=== PATIENT | male | born 1995 | race African-American/Black ===

== ENCOUNTER 2018-08-10 02:28 | Emergency (ER) | payer SELFPAY ==
[2018-08-10] MEDS ORDERED: ACETAMINOPHEN 325 MG TABLET PO ONE (03:35)
[2018-08-10] MEDS ORDERED: DIPH/PERTUSS(ACELL)/TETANUS VAC/PF 0.5 ML SYR (>=10YO) IM ONE (03:37)
--- NOTE | 2018-08-10 03:38 | ER Document Report ---
HPI - HPI Pain Level: 5 Context: Patient is a 22-year-old male presents to the emergency department after stubbing his left fifth toe on a break while taking out the garbage. This happened at 0100 this morning. he was not wearing any shoes always taking out the garbage. He complains of pain to his fifth toe, walking is difficult for him, but he is able to walk enough to where he can get around. He favors his inner foot. - CONSTITUTIONAL Constitutional: DENIES: Fever, Chills - CARDIOVASCULAR Cardiovascular: DENIES: Chest pain - RESPIRATORY Respiratory: DENIES: Trouble Breathing, Coughing - MUSCULOSKELETAL Musculoskeletal: REPORTS: Extremity pain - Left fifth toe - DERM Skin Problems: Laceration - Left fifth toe Past Medical History - General Information source: Patient - Social History Smoking Status: Never Smoker Frequency of alcohol use: None Drug Abuse: None Family History: Reviewed & Not Pertinent - Immunizations Hx Diphtheria, Pertussis, Tetanus Vaccination: Yes Vertical Provider Document - INFECTION CONTROL TRAVEL OUTSIDE OF THE [place] IN LAST 30 DAYS: No - HEENT HEENT: Atraumatic - RESPIRATORY Respiratory: No Respiratory Distress - MUSCULOSKELETAL/EXTREMETIES Musculoskeletal/Extremeties: Tender - Left fifth toe, Edema - Left fifth toe - NEURO Level of Consciousness: Awake, Alert, Appropriate - DERM Integumentary: Warm, Dry, Laceration - Left fifth toe Course - Re-evaluation Re-evalutation: 08/10/18 04:01 X-rays results show no acute fracture. Patient states his pain is better. Since his pain improved, I was able to further evaluate his toe and he has a laceration to the area. 08/10/18 04:51 Dermabond was used to close patient's laceration. Patient tolerated procedure well. He only has a sock to wear to go home. Therefore, I will provide a postop shoe for him to protect his foot. - Vital Signs Vital signs: Temp Pulse Resp BP Pulse Ox 97.8 F 60 16 124/64 97 08/10/18 02:33 08/10/18 02:33 08/10/18 02:33 08/10/18 02:33 08/10/18 02:33 Discharge - Discharge Clinical Impression: Toe laceration Condition: Stable Disposition: HOME, SELF-CARE Additional Instructions: You have been seen in the emergency department for a cut on your toe. You do not have a fracture. Dermabond, a medical glue, was placed to closure cut. Please keep the area dry. The Dermabond will come off and 5-7 days. If it does not, you may apply petroleum jelly to the area to get the glue off. You have also been prescribed antibiotics. Please finish all your antibiotics. If you feel your toe is getting worse, the Dermabond falls off too early, or have any concerns that are worrisome to you, please return to the emergency department. Prescriptions: Cephalexin Monohydrate [Keflex 500 mg Capsule] 500 mg PO Q6H 5 Days capsule
--- NOTE | 2018-08-10 03:50 | RADIOLOGY REPORT (SQ) ---
Left foot three view on 08/10/2018 at 3:22 AM CLINICAL INDICATION: Laceration, pain COMPARISON: None FINDINGS: There is no radiopaque foreign body. There are no fractures. Visualized joints are well aligned. No bony abnormality is noted. IMPRESSION: No acute bony abnormality.
[2018-08-10] MEDS ORDERED: CEPHALEXIN 500 MG CAPSULE PO ONE (04:57)
[2018-08-10 05:28] VITALS: BP 121/70
== END 2018-08-10 05:30 | disposition home or self-care (01) ==
LOC: ER 02:28
DX: S91.115A Laceration without foreign body of left lesser toe(s) without damage to nail, initial encounter (principal); M79.675 Pain in left toe(s); W22.8XXA Striking against or struck by other objects, initial encounter
CPT/HCPCS: 90471; 90715; 99283

== ENCOUNTER 2019-12-07 07:38 | Emergency (ER) | payer OTHER ==
[2019-12-07] MEDS ORDERED: ACETAMINOPHEN 325 MG TABLET PO ONE (08:46)
[2019-12-07] MEDS ORDERED: CYCLOBENZAPRINE HCL 10 MG TABLET PO ONE (11:56)
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
[2019-12-07 13:31] VITALS: BP 127/68
== END 2019-12-07 13:31 | disposition home or self-care (01) ==
LOC: ER 07:38
DX: S16.1XXA Strain of muscle, fascia and tendon at neck level, initial encounter (principal); S29.012A Strain of muscle and tendon of back wall of thorax, initial encounter; S90.32XA Contusion of left foot, initial encounter; M54.2 Cervicalgia; M79.672 Pain in left foot; M54.6 Pain in thoracic spine; R42 Dizziness and giddiness; R51 Headache; M25.50 Pain in unspecified joint; V87.7XXA Person injured in collision between other specified motor vehicles (traffic), initial encounter
CPT/HCPCS: 72040; 72070; 99284